=== PATIENT | female | born 2000 | race American Indian/Alaskan Native ===

== ENCOUNTER 2021-03-31 14:11 | Emergency (ER) | payer MEDICAID ==
[2021-03-31 15:23] LABS: Basophils # (Auto) 0.1 K/mm3 (0.0-0.1); Basophils % (Auto) 0.4 % (0.0-1.8); Hematocrit 42.7 % (30.3-42.9); Hemoglobin 14.2 gm/dl (10.1-14.3); Lymphocytes # (Auto) 1.4 K/mm3 (1.2-5.4); Lymphocytes % (Auto) 11.1 % (13.4-35.0); Mean Corpuscular HGB Conc 33 % (30-34); Mean Corpuscular Volume 98 fl (79-97); Monocytes # (Auto) 1.1 K/mm3 (0.0-0.8); Monocytes % (Auto) 8.5 % (0.0-7.3); Platelet Count 235 K/mm3 (140-440); Red Blood Count 4.38 M/mm3 (3.65-5.03); Red Cell Distribution Width 13.8 % (13.2-15.2)
[2021-03-31 15:42] LABS: Alanine Aminotransferase 9 units/L (7-56); Albumin 4.4 g/dL (3.9-5); Blood Urea Nitrogen 13 mg/dL (7-17); Calcium 9.3 mg/dL (8.4-10.2); Hemolysis Index 5
[2021-03-31 15:54] LABS: BUN/Creatinine Ratio 22
[2021-03-31 16:17] LABS: Bilirubin,Urine SM (Negative); Blood,Urine NEG (Negative); Color,Urine Amber (Yellow); Hyaline Casts,Urine 2 /LPF; Mucus,Urine 3+ /HPF
[2021-03-31 16:28] LABS: Ictotest,Urine Negative (Negative)
[2021-03-31] MEDS ORDERED: ONDANSETRON 4 MG ODT TAB PO ONE (17:31)
--- NOTE | 2021-03-31 17:35 | Emergency Department Report ---
<MECHELLE SANCHEZ - Last Filed: 03/31/21 18:01> ED Abdominal Pain HPI - General Chief Complaint: Abdominal Pain Stated Complaint: ABD PAIN Time Seen by Provider: 03/31/21 16:50 Source: patient Mode of arrival: Ambulatory Limitations: No Limitations - History of Present Illness Initial Comments: 20-year-old -[place] female presents to the emergency room stating she is having abdominal pain since yesterday. Patient admits to nausea and vomiting and concern for possible . Patient states she last vomited about 30 minutes ago. Patient states that she was having intermittent abdominal pain that felt like cramps last night and then pains became constant this morning but now has improved. Patient denies any vaginal discharge no vaginal bleeding. Patient is 3 para 3 last menstrual period March 02, 2021. Patient does admit to smoking marijuana daily. Patient has a past medical history of hyperte nsion and is not on any medications. Patient denies any headache at this time. -: Last night Location: suprapubic Radiation: none Migration to: no migration Severity scale (0 -10): 10 Quality: cramping Consistency: now resolved Improves With: nothing Worsens With: nothing Associated Symptoms: nausea, vomiting - Related Data LMP Date: 03/02/21 Previous Rx's Medication Instructions Recorded Last Taken Type hydroCHLOROthiazide [HCTZ] 25 mg PO QDAY #30 tablet 08/27/16 Unknown Rx Ondansetron [Zofran ODT TAB] 4 mg PO Q6H PRN #12 tab.rapdis 03/31/21 Unknown Rx amLODIPine 10 mg PO DAILY #60 tab 03/31/21 Unknown Rx Allergies Allergy/AdvReac Type Severity Reaction Status Date / Time No Known Allergies Allergy Verified 08/27/16 08:05 ED Review of Systems Comment: All other systems reviewed and negative ED Past Medical Hx - Past Medical History Previous Medical History?: Yes Hx Hypertension: Yes - Surgical History Past Surgical History?: No - Social History Smoking Status: Never Smoker Substance Use Type: None - Medications Home Medications: Home Medications Medication Instructions Recorded Confirmed Last Taken Type hydroCHLOROthiazide [HCTZ] 25 mg PO QDAY #30 tablet 08/27/16 Unknown Rx Ondansetron [Zofran ODT TAB] 4 mg PO Q6H PRN #12 tab.rapdis 03/31/21 Unknown Rx amLODIPine 10 mg PO DAILY #60 tab 03/31/21 Unknown Rx ED Physical Exam - General Limitations: No Limitations General appearance: alert, in no apparent distress - Head Head exam: Present: atraumatic, normocephalic - Eye Eye exam: Present: normal appearance - ENT ENT exam: Present: mucous membranes moist, normal external ear exam - Neck Neck exam: Present: normal inspection, full ROM - Respiratory Respiratory exam: Present: normal lung sounds bilaterally - Cardiovascular Cardiovascular Exam: Present: regular rate - GI/Abdominal GI/Abdominal exam: Present: soft. Absent: distended, tenderness - Extremities Exam Extremities exam: Present: normal inspection, full ROM - Back Exam Back exam: Present: normal inspection - Neurological Exam Neurological exam: Present: alert, oriented X3, normal gait - Psychiatric Psychiatric exam: Present: normal affect, normal mood - Skin Skin exam: Present: warm, dry, intact, normal color. Absent: rash ED Medical Decision Making - Lab Data Result diagrams: 03/31/21 14:53 03/31/21 14:53 - Medical Decision Making 20-year-old -[place] female presents to the emergency room stating she is having abdominal pain since yesterday. Patient admits to nausea and vomiting and concern for possible . Patient states she last vomited about 30 minutes ago. Patient states that she was having intermittent abdominal pain that felt like cramps last night and then pains became constant this morning but now has improved. Patient denies any vaginal discharge no vaginal bleeding. Patient is 3 para 3 last menstrual period March 02, 2021. Patient does admit to smoking marijuana daily. Patient has a past medical history of hypertension and is not on any medications. Patient denies any headache at this time. Patient's been ordered Zofran for nausea. Will try p.o. challenge and 20 minutes. Urinalysis is clear no concerns for infection, negative test chemistries are stable CMP is nonactionable. Long discussion with patient regarding nausea vomiting and abdominal cramping with chronic use cannabinoid. Patient has hypertension that is not managed we will place patient on amlodipine 10 mg daily patient is to follow-up with a primary care provider. ED Disposition Clinical Impression: Marijuana use, Elevated blood pressure reading Disposition: TO HOME OR SELFCARE Is pt being admited?: No Does the pt Need Aspirin: No Condition: Good Instructions: Cannabis Use Disorder, Hypertension, Adult, [id number], Abdominal Pain (ED), Hypertension (ED) Additional Instructions: Please refrain from smoking marijuana as this can be the cause of your nausea vomiting abdominal pain. Your urinalysis was negative for any infection should test was negative. Please increase your fluid intake. Prescriptions: amLODIPine 10 mg PO DAILY #60 tab Ondansetron [Zofran ODT TAB] 4 mg PO Q6H PRN #12 tab.rapdis PRN Reason: Nausea And Vomiting Referrals: PRIMARY CARE, [Primary Care Provider] - 3-5 Days [facility] [Provider Group] - 3-5 Days [facility] [Provider Group] - 3-5 Days Forms: Work/School Release Form(ED) <COLLEEN DUNCAN - Last Filed: 03/31/21 18:51> ED Review of Systems ROS: Stated complaint: ABD PAIN Other details as noted in HPI ED Course Vital Signs 03/31/21 03/31/21 03/31/21 14:43 14:46 18:02 Temperature 98.8 F 98.4 F Pulse Rate 60 59 L 59 L Respiratory 14 18 Rate Blood Pressure 171/116 180/113 Blood Pressure 171/117 [Right] O2 Sat by Pulse 99 99 100 Oximetry 03/31/21 18:12 Temperature Pulse Rate 52 L Respiratory 20 Rate Blood Pressure Blood Pressure 180/113 [Right] O2 Sat by Pulse 99 Oximetry ED Medical Decision Making - Lab Data Result diagrams: 03/31/21 14:53 03/31/21 14:53 Critical care attestation.: If time is entered above; I have spent that time in minutes in the direct care of this critically ill patient, excluding procedure time. ED Disposition Is pt being admited?: No Does the pt Need Aspirin: No
[2021-03-31 18:04] VITALS: BP 180/113
== END 2021-03-31 18:12 | disposition home or self-care (01) ==
LOC: ED 14:11
DX: F12.90 Cannabis use, unspecified, uncomplicated (principal); R03.0 Elevated blood-pressure reading, without diagnosis of hypertension; I10 Essential (primary) hypertension; Z79.899 Other long term (current) drug therapy
CPT/HCPCS: 36415; 80053; 81001; 84702; 85025; Q0162